=== PATIENT | male | born 1970 | race Two or more races ===

== ENCOUNTER 2018-11-21 13:56 | Emergency (ER) | payer SELFPAY ==
[~2018-11-21] VITALS: Ht 170.2 cm; Wt 81.6 kg
--- NOTE | 2018-11-21 14:34 | RAD ---
PROCEDURE: CHEST PA LATERAL CLINICAL INDICATION: Chest pain COMPARISON: None FINDINGS: No pneumothorax identified. Cardiac and mediastinal contours unremarkable. No pulmonary consolidation or acute airspace disease. No acute osseous abnormalities identified. IMPRESSION: No pulmonary consolidation or acute airspace disease. Electronically signed by: Jerry Thomas DO (11/21/2018 2:30 PM) [facility]
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
[2018-11-21] MEDS ORDERED: IV NORMAL SALINE 1,000ML 1,000 ML IV ONE (14:45)
[2018-11-21 14:54] LABS: BASO # 0.1 x10^3/uL (0.0-0.2); BASO % 1 % (0-3); EOS # 0.4 x10^3/uL (0.0-0.7); EOS % 4 % (0-3); HEMATOCRIT 52.4 % (39.0-53.0); HEMOGLOBIN 17.2 g/dL (13.0-17.5); LYMPH # 2.7 x10^3/uL (1.0-4.8); LYMPH % 27 % (24-48); MEAN CORPUSCULAR HEMOGLOBIN 30 pg (25-35); MEAN CORPUSCULAR HGB CONC 33 g/dL (31-37); MEAN CORPUSCULAR VOLUME 90 fL (79-100); MONO # 0.8 x10^3/uL (0.0-1.1); MONO % 8 % (0-9); NEUT # 6.1 x10^3uL (1.8-7.7); NEUT % 61 % (31-73); PLATELET COUNT 259 x10^3/uL (140-400); RED BLOOD COUNT 5.84 x10^6/uL (4.30-5.70); RED CELL DISTRIBUTION WIDTH 13.1 % (11.5-14.5); WHITE BLOOD COUNT 10.1 x10^3/uL (4.0-11.0)
[2018-11-21 15:05] LABS: ALBUMIN 4.2 g/dL (3.4-5.0); ALBUMIN/GLOBULIN RATIO 1.1 (1.0-1.7); CREATININE 0.8 mg/dL (0.7-1.3); GFR 103.6; POTASSIUM 3.5 mmol/L (3.5-5.1); TOTAL BILIRUBIN 0.5 mg/dL (0.2-1.0); TOTAL PROTEIN 8.1 g/dL (6.4-8.2)
[2018-11-21] MEDS ORDERED: diazePAM 5 MG TABLET PO ONE (15:30)
[2018-11-21] MEDS ORDERED: DIAZ5TAB PO (16:27)
[2018-11-21] MEDS ORDERED: HYDR-3165 PO (16:27)
[2018-11-21] MEDS ORDERED: MORPHINE SULFATE 2 MG/ML DISP.SYRIN. IV ONE (16:45)
[2018-11-21 16:50] VITALS: BP 114/83
--- NOTE | 2018-11-22 11:03 | EKG ---
[address] [address] Test Date: 2018-11-21 Test Time: 14:10:04 Pat Name: JASPAL MCKINLEY Department: Room: Gender: M Machine Tester: : [id number] Requested By: IRASEMA MAHER Order Number: [id number] Reading MD: Measurements Intervals [place] Rate: 110 P: 37 [place]: 138 QRS: -41 QRSD: 82 T: 22 QT: 316 QTc: 433 Interpretive Statements SINUS TACHYCARDIA ABNORMAL LEFT AXIS DEVIATION R-S TRANSITION ZONE IN V LEADS DISPLACED TO THE LEFT LEFT ANTERIOR FASCICULAR BLOCK QRS(T) CONTOUR ABNORMALITY CONSIDER ANTEROSEPTAL MYOCARDIAL DAMAGE ABNORMAL ECG RI6.01 No previous ECG available for comparison
== END 2018-11-21 17:35 | disposition home or self-care (01) ==
LOC: ER 13:56
DX: M46.1 Sacroiliitis, not elsewhere classified (principal); R07.89 Other chest pain; E86.0 Dehydration; I10 Essential (primary) hypertension; Z90.89 Acquired absence of other organs
CPT/HCPCS: 36415; 71046; 80053; 84484; 85025; 85379; 93005; 96361; 96374; 99285; J2270; J7030